=== PATIENT | female | born 1985 | race Caucasian/White ===

== ENCOUNTER 2018-09-16 20:01 | Emergency (ER) | payer MEDICAID ==
[~2018-09-16] VITALS: Ht 180.3 cm; Wt 67.1 kg
[~2018-09-16 20:01] MED LIST: ENO40SY
[2018-09-16 21:11] VITALS: BP 127/65
[2018-09-16] MEDS ORDERED: TETRACAINE HCL 0.5% OPTH(EYE) SOLN 4ML RIGHTEYE ONE (21:45)
[2018-09-16] MEDS ORDERED: FLUORESCEIN SOD 1 MG TEST STRIP RIGHTEYE ONE (21:45)
== END 2018-09-16 22:12 | disposition home or self-care (01) ==
LOC: ER 20:01
DX: S05.01XA Injury of conjunctiva and corneal abrasion without foreign body, right eye, initial encounter (principal); X58.XXXA Exposure to other specified factors, initial encounter; Y93.89 Activity, other specified; Y99.8 Other external cause status; Y92.89 Other specified places as the place of occurrence of the external cause

== ENCOUNTER 2019-01-23 19:15 | Emergency (ER) | payer MEDICAID ==
[~2019-01-23] VITALS: Ht 180.3 cm; Wt 54.4 kg
[2019-01-23 19:29] VITALS: BP 104/66
[2019-01-23] MEDS ORDERED: cefTRIAXone SOD 1,000 MG VL IM ONE (21:30)
[2019-01-23] MEDS ORDERED: DEXAMETHASONE SOD PHOS 10MG/1ML VIAL INJ IM ONE (21:30)
== END 2019-01-23 21:56 | disposition home or self-care (01) ==
LOC: ER 19:18
DX: J06.9 Acute upper respiratory infection, unspecified (principal)
CPT/HCPCS: 96372; 99283; J0696; J1100

== ENCOUNTER 2024-11-08 21:45 | Emergency (ER) | payer MEDICAID, OTHER ==
[~2024-11-08] VITALS: Ht 177.8 cm; Wt 65.7 kg
[2024-11-08 22:17] VITALS: BP 135/85; PULSE 91; RESP 15; O2SAT 100
[2024-11-08] MEDS ORDERED: CLIN1CAP70 PO (22:22)
--- NOTE | 2024-11-08 22:23 | ED.PDOC ---
History of Present Illness(SKN HPI Comments 39-year-old female complaining of wound to her left lower leg. States four days ago she was scratched by cat. States the areas becoming more red and swollen. Has not noticed some scant discharge. Nothing makes it better, touching the area makes it worse. No fevers no chills. 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 Family History Family History: Unknown Social History Smoker: Non-Smoker Alcohol: Denies ETOH Use Drugs: Denies Drug Use Lives In: Home Constitutional: denies: chills, diaphoresis, fatigue, fever, malaise, sweats, weakness, others EENTM: denies: blurred vision, double vision, ear bleeding, ear discharge, ear drainage, ear pain, ear ringing, eye pain, eye redness, hearing loss, mouth pain, mouth swelling, nasal discharge, nose bleeding, nose congestion, nose pain, photophobia, tearing, throat pain, throat swelling, voice changes, others Cardiovascular: denies: chest pain, dizzy spells, diaphoresis, Dyspnea on exertion, edema, irregular heart beat, left arm pain, lightheadedness, palpitations, PND, syncope, others Gastrointestinal: denies: abdomen distended, abdominal pain, blood streaked bowels, constipated, diarrhea, dysphagia, difficulty swallowing, hematemesis, melena, nausea, poor appetite, poor fluid intake, rectal bleeding, rectal pain, vomiting, others Genitourinary: denies: abnormal vagina bleeding, burning, dyspareunia, dysuria, flank pain, frequency, hematuria, incontinence, pain, , vagina discharge, urgency, others Neurological: denies: dizziness, fainting, headache, left sided numbness, left sided weakness, numbness, paresthesia, pre-existing deficit, right sided numbness, right sided weakness, seizure, speech problems, tingling, tremors, weakness, others Musculoskeletal: denies: back pain, gout, joint pain, joint swelling, muscle pain, muscle stiffness, neck pain, others Integumetry: reports: wounds (Left lower leg); denies: bruises, change in color, change in hair/nails, dryness, laceration, lesions, lumps, rash, others Allergic/Immunocompromised: denies: Difficulty Healing, Frequent Infections, Hives, Itching, others Hematologic/Lymphatic: denies: anemia, blood clots, easy bleeding, easy bruisi ng, swollen glands, others Endocrine: denies: excessive hunger, excessive sweating, excessive thirst, exce ssive urination, flushing, intolerance to cold, intolerance to heat, unexplained weight gain, unexplained weight loss, others Physical Exam General Appearance: No Apparent Distress, Normal HEENT: Normal ENT Inspection, Pharynx Normal, TMs Normal Neck: Full Range of Motion, Non-Tender, Normal, Normal Inspection Respiratory: Chest Non-Tender, Lungs Clear, No Accessory Muscle Use, No Respiratory Distress, Normal Breath Sounds Cardiovascular: No Edema, No JVD, No Murmur, No Gallop, Normal Peripheral Pulses, Regular Rate/Rhythm Breast Exam: Deferred Gastrointestinal: No Organomegaly, Non Tender, No Pulsatile Mass, Normal Bowel Sounds, Soft Genitalia: Deferred Pelvic: Deferred Rectal: Deferred Extremities: No calf tenderness, Normal capillary refill, Normal inspection, Normal range of motion, Non-tender, No pedal edema Musculoskeletal : Apperance: Normal Neurologic: Alert, ammonia solution preparer II-XII nml as Tested, No Motor Deficits, Normal Affect, Normal Mood, No Sensory Deficits Cerebellar Function: Normal Reflexes: Normal Skin: Dry, Normal Color, Warm, Wounds (Wound to the medial side of the left lower leg. Area is erythemic. Wound is approximate 1 cm. Areas tender to palpation.) Lymphatic: No Adenopathy Was a procedure done? Was a procedure done?: No Differential Diagnosis (INTG) Differential Diagnosis: Abrasion, Cellulitis, Insect Envenomation X-Ray, Labs, Meds, VS Comment Imaging: X-rays and CT scans were reviewed and interpreted by this provider, imaging shows no fractures and no pathological disease. Pending radiology review. Laboratory: Labs reviewed and interpreted by this provider. No significant abnormalities noted. Patient has prior medical visits reviewed. Med reconciliation performed Vital signs reviewed Time of 1ST Reevaluation: 22:23 Reevaluation 1ST: Improved Patient Education/Counseling: Diagnosis, Need For Follow Up (Follow up with PCP in the next 2-4 days. Return emergency department if symptoms worsen.) Family Education/Counseling: No Family Present Departure 1 Departure Time of Disposition: 22:21 Impression: Primary Impression: Cellulitis Qualified Codes: L03.116 - Cellulitis of left lower limb Disposition: HOME / SELF CARE / HOMELESS Condition: Fair e-Prescriptions Clindamycin Hcl (Clindamycin Hcl) 300 Mg Cap 300 MG PO QID for 10 Days, #40 CAP Prov: REX NORRIS 11/08/24 Discharged With: Self Critical Care Note Critical Care Time?: No Stability Stability form required: No Heart Score Heart Score: Heart Score Response (Comments) Value History N/A 0 EKG N/A 0 Age N/A 0 Risk Factors N/A 0 Troponin N/A 0 Total 0 REX NORRIS Nov 08, 2024 22:23
== END 2024-11-09 | disposition home or self-care (01) ==
LOC: ER 21:45
DX: L03.116 Cellulitis of left lower limb (principal)

== ENCOUNTER 2024-12-09 20:10 | Emergency (ER) | payer OTHER ==
[~2024-12-09] VITALS: Ht 177.8 cm; Wt 63.3 kg
[~2024-12-09 20:10] MED LIST changes: +CLIN1CAP70 PO
[2024-12-09 20:38] VITALS: BP 141/81; RESP 24; O2SAT 98
--- NOTE | 2024-12-09 20:51 | ED.PDOC ---
History of Present Illness HPI Comments This is a 39-year-old female who comes in with chief complaint of weakness since about 4:00 a.m. this afternoon. The patient was currently at a house feeding several cats and had two syncopal episodes. Her friend came to check on her and brought her to the emergency department's for evaluation. The patient denies any chest pain, nausea or vomiting. The patient was complaining of chills but no fever the patient denies any history of this in the past. She is having some leg swelling bilaterally. 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: No 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 Family History Family History: Family hx of DM, Family hx of Cancer Social History Smoker: Non-Smoker Alcohol: Denies ETOH Use Drugs: Methamphetamine Lives In: Home Constitutional: reports: chills, weakness; denies: diaphoresis, fatigue, fever, malaise, sweats, others EENTM: denies: blurred vision, double vision, ear bleeding, ear discharge, ear drainage, ear pain, ear ringing, eye pain, eye redness, hearing loss, mouth pain, mouth swelling, nasal discharge, nose bleeding, nose congestion, nose pain, photophobia, tearing, throat pain, throat swelling, voice changes, others Respiratory: denies: cough, hemoptysis, orthopnea, SOB at rest, shortness of breath, SOB with excertion, stridor, wheezing, others Cardiovascular: reports: syncope; denies: chest pain, dizzy spells, diaphoresis, Dyspnea on exertion, edema, irregular heart beat, left arm pain, lightheadedness, palpitations, PND, others Gastrointestinal: denies: abdomen distended, abdominal pain, blood streaked bowels, constipated, diarrhea, dysphagia, difficulty swallowing, hematemesis, melena, nausea, poor appetite, poor fluid intake, rectal bleeding, rectal pain, vomiting, others Genitourinary: denies: abnormal vagina bleeding, burning, dyspareunia, dysuria, flank pain, frequency, hematuria, incontinence, pain, , vagina discharge, urgency, others Neurological: reports: others (Leg swelling); denies: dizziness, fainting, headache, left sided numbness, left sided weakness, numbness, paresthesia, pre- existing deficit, right sided numbness, right sided weakness, seizure, speech problems, tingling, tremors, weakness Musculoskeletal: denies: back pain, gout, joint pain, joint swelling, muscle pain, muscle stiffness, neck pain, others Integumetry: denies: bruises, change in color, change in hair/nails, dryness, laceration, lesions, lumps, rash, wounds, others Allergic/Immunocompromised: denies: Difficulty Healing, Frequent Infections, Hives, Itching, others Hematologic/Lymphatic: denies: anemia, blood clots, easy bleeding, easy bruising, swollen glands, others Endocrine: denies: excessive hunger, excessive sweating, excessive thirst, excessive urination, flushing, intolerance to cold, intolerance to heat, unexplained weight gain, unexplained weight loss, others Psychiatric: denies: anxiety, bipolar disorder, depression, hopeless, panic disorder, schizophrenia, sleepless, suicidal, others Physical Exam General Appearance: Moderate Distress HEENT: Normal ENT Inspection, Pharynx Normal, TMs Normal Neck: Full Range of Motion, Non-Tender, Normal, Normal Inspection Respiratory: Chest Non-Tender, Lungs Clear, No Accessory Muscle Use, No Respiratory Distress, Normal Breath Sounds Cardiovascular: No Edema, No JVD, No Murmur, No Gallop, Tachycardia Breast Exam: Deferred Gastrointestinal: No Organomegaly, Non Tender, No Pulsatile Mass, Normal Bowel Sounds, Soft Genitalia: Deferred Pelvic: Deferred Rectal: Deferred Extremities: No calf tenderness, Normal capillary refill, Pedal edema Musculoskeletal : Apperance: Normal Neurologic: Alert, information technology associate II-XII nml as Tested, Motor Weakness, Normal Affect, Normal Mood, No Sensory Deficits Cerebellar Function: Normal Reflexes: Normal Skin: Dry, Normal Color, Warm Lymphatic: No Adenopathy Was a procedure done? Was a procedure done?: No EKG EKG : Pulse Rate (adult): 114 [place]: Normal Cardiac Rhythm: ST Block: None ST: Nonsp Differential Dx Considerations may include: Weakness, electrolyte imbalance, sepsis X-Ray, Labs, Meds, VS Vital Signs Date Time Temp Pulse Resp B/P (MAP) Pulse Ox O2 Delivery O2 Flow Rate FiO2 12/09/24 21:22 114 12/09/24 20:55 114 12/09/24 20:38 99.9 120 24 141/81 (101) 98 Lab Test 12/09/24 21:21 Range/Units White Blood Count Pending Red Blood Count Pending Hemoglobin Pending Hematocrit Pending Mean Corpuscular Volume Pending Mean Corpuscular Hemoglobin Pending Mean Corpuscular Hemoglobin Concent Pending Red Cell Distribution Width Pending Platelet Count Pending Mean Platelet Volume Pending Neutrophils (%) (Auto) Pending Lymphocytes (%) (Auto) Pending Monocytes (%) (Auto) Pending Basophils (%) (Auto) Pending Neutrophils # (Auto) Pending Lymphocytes # (Auto) Pending Monocytes # (Auto) Pending Sodium Level Pending Potassium Level Pending Chloride Level Pending Carbon Dioxide Level Pending Anion Gap Pending Blood Urea Nitrogen Pending Creatinine Pending Glomerular Filtration Rate Calc Pending BUN/Creatinine Ratio Pending Serum Glucose Pending Calcium Level Pending Ultrasound of the lower extremities are pending The cc and chemistry panel are pending The patient will be signed out to Dr. Phan Images Reviewed?: Images reviewed and evaluated by me Time of 1ST Reevaluation: 21:22 Reevaluation 1ST: Unchanged Patient Education/Counseling: Diagnosis, Treatment, Prognosis Family Education/Counseling: No Family Present Departure 1 Departure Time of Disposition: 21:21 Impression: Primary Impression: Generalized weakness Additional Impression: Pedal edema Disposition: 30 STILL A PATIENT Condition: Fair Critical Care Note Critical Care Time?: No Stability Stability form required: Yes Unstable for transfer: Telemetry monitoring (Telemetry monitoring required), ED Physician Assesment (Clinical assesment) Heart Score Heart Score: Heart Score Response (Comments) Value History N/A 0 EKG N/A 0 Age N/A (A) 0 Risk Factors N/A 0 Troponin N/A (Bunion) 0 Total 0 BHAVESH FRAGA MD Dec 09, 2024 20:51
[2024-12-09 21:22] VITALS: PULSE 114
[2024-12-09 21:57] LABS: Potassium 3.9 mmol/L (3.5-5.1); Sodium 138 mmol/L (136-145)
[2024-12-09 21:58] LABS: Anion Gap 11 (5-15); Calcium 9.3 mg/dL (8.7-10.4); Carbon Dioxide 20 mmol/L (20-31)
[2024-12-09 22:02] LABS: Urine Bacteria None Seen /hpf (None Seen)
[2024-12-09 22:03] LABS: BUN/Creatinine Ratio 12.6 (10.0-20.0); Blood Urea Nitrogen 11 mg/dL (9-23); Glucose 97 mg/dL (74-106)
--- NOTE | 2024-12-09 22:12 | DVH ---
CLINICAL HISTORY: leg swelling TECHNIQUE: Color and duplex doppler imaging of the bilateral lower extremity veins was performed. Ves chinyere compression if possible was also performed. WID: COMPARISON: None FINDINGS: Right Lower Extremity: Right common femoral vein: Normal compressibility and flow. Right femoral vein: Normal compressibility and flow. Right popliteal vein: Normal compressibility and flow. Proximal calf veins are normally compressible. Left Lower Extremity: Left common femoral vein: Normal compressibility and flow. Left femoral vein: Nonocclusive echogenic linear thrombus in the mid superficial femoral vein. Otherw ise Normal compressibility and flow. Left popliteal vein: Normal compressibility and flow. Proximal calf veins are normally compressible. IMPRESSION: 1. Chronic appearing nonocclusive thrombus in the mid left superficial femoral vein 2. NO SONOGRAPHIC EVIDENCE FOR DEEP VENOUS THROMBOSIS IN THE right LOWER EXTREMITY VEINS. Critical Result: Chronic appearing left femoral vein DVT Findings discussed with BHAVESH FRAGA at 12/09/2024 by the destination specialist ..
[2024-12-09 22:15] LABS: Basophils # (auto) 0 10 ^3/uL (0-0.2); Eosinophils # (auto) 0 10 ^3/uL (0-0.8); Monocytes # (auto) 0.2 10 ^3/uL (0-1.3); White Blood Cell 3.2 10^3/uL (4.4-10.8)
[2024-12-09 22:16] LABS: Basophils % (auto) 0.9 % (0.0-2.0); Eosinophils % (auto) 0.8 % (0.0-7.0); Hematocrit 19.1 % (36.0-46.0); Lymphocytes # (auto) 0.3 10 ^3/uL (0.4-5.4); Lymphocytes % (auto) 8.6 % (10.0-50.0); Mean Corpuscular Hemoglobin 15.4 pg (28.0-32.0); Mean Corpuscular Hgb Conc. 27.6 g/dL (32.0-36.0); Mean Corpuscular Volume 55.7 fL (80.0-100.0); Monocytes % (auto) 7.9 % (0.0-12.0); Neutrophils # (auto) 2.6 10 ^3/uL (1.6-8.6); Neutrophils % (auto) 81.8 % (37.0-80.0); Nucleated Red Blood Cells % 0.8 %; Platelet Count (auto) 298 10^3/uL (140-450); Red Blood Cells 3.43 10^6/uL (4.0-5.20)
[2024-12-09 22:19] LABS: Hemoglobin 5.3 g/dL (12.2-16.2)
[2024-12-09 22:21] LABS: Urine Blood 3+ /uL (Negative); Urine Clarity Clear (Clear); Urine Color Light-Yellow (Yellow); Urine Protein, UAD Negative (Negative); Urine Specific Gravity 1.017 (1.001-1.035); Urine Squamous Epithelial Cell FEW /hpf (<5); Urine Urobilinogen Normal (Negative); Urine WBC 1 /HPF (0-5); Urine pH 6.5 (5.0-9.0)
[2024-12-09 22:36] LABS: Chloride 107 mmol/L (98-107)
--- NOTE | 2024-12-09 22:59 | DVH ---
EXAM: XY CHEST TWO VIEWS ROUTINE CLINICAL HISTORY: cough TECHNIQUE: Frontal and lateral views of the chest WID: COMPARISON: None FINDINGS: Lines and tubes: None Chest: The heart size and pulmonary vasculature is within normal limits. No pleural effusion, pneumothorax, or consolidation. The osseous structures are grossly intact. IMPRESSION: No acute cardiopulmonary abnormality.
[2024-12-09 23:11] LABS: Alanine Aminotransferase 21 U/L (7-40); Albumin 3.9 g/dL (3.2-4.8); Alkaline Phosphatase 78 U/L (46-116); Anion Gap 9 (5-15); Aspartate Aminotransferase 21 U/L (13-40); BUN/Creatinine Ratio 12.8 (10.0-20.0); Blood Urea Nitrogen 11 mg/dL (9-23); Calcium 9.1 mg/dL (8.7-10.4); Carbon Dioxide 21 mmol/L (20-31); Potassium 3.8 mmol/L (3.5-5.1); Sodium 137 mmol/L (136-145)
[2024-12-09 23:12] LABS: Bilirubin, Total 0.8 mg/dL (0.2-1.0); Total Protein 6.8 g/dL (5.7-8.2)
[2024-12-09 23:14] LABS: Chloride 107 mmol/L (98-107); Glucose 110 mg/dL (74-106)
[2024-12-09 23:16] LABS: Anisocytosis Slight; Hypochromia Marked
[2024-12-09 23:17] LABS: Ovalocytes FEW
[2024-12-09 23:18] LABS: Platelet Estimate Adequate
[2024-12-09 23:19] LABS: Tear Drop Cells FEW
--- NOTE | 2024-12-10 00:34 | ECG ---
[facility] Test Date: 2024-12-09 Test Time: 20:55:06 Pat Name: TORIN ABEL Department: ER Room: Gender: F Head Host/Hostess: DERICK : 1985 Requested By: BHAVESH FRAGA Order Number: [id number] Reading MD: Azam Lutz Measurements Intervals [place] Rate: 114 P: 76 DC: 146 QRS: 89 QRSD: 95 T: 56 QT: 332 QTc: 458 Interpretive Statements Sinus tachycardia Baseline wander in lead(s) V2 Electronically Signed On 12-10-2024 12:11:47 PST by Azam Lutz Please click the below link to view image of tracing.
[2024-12-10] MEDS ORDERED: DOCUSATE SOD 100 MG CAP PO PRN (02:00)
[2024-12-10] MEDS ORDERED: ONDANSETRON HCL 4 MG/2 ML VIAL IV PRN (02:00)
[2024-12-10] MEDS ORDERED: ACETAMINOPHEN 325 MG TAB PO PRN (02:00)
[2024-12-10] MEDS ORDERED: SODIUM CHLORIDE 0.9% 1,000 ML IV SCH (02:00)
[2024-12-10] MEDS ORDERED: HYDROcodone-ACET 5/325MG TAB PO PRN (02:00)
== END 2024-12-10 04:05 | disposition left against medical advice (07) ==
LOC: ER 20:10 → MERGE 20:10 → ER 12-10 04:05
DX: R60.0 Localized edema (principal); R53.1 Weakness; R55 Syncope and collapse; Z86.718 Personal history of other venous thrombosis and embolism
CPT/HCPCS: 36415; 71046; 80048; 80053; 81001; 83880; 85025; 86850; 86900; 86901; 86920; 93005; 93970

== ENCOUNTER 2024-12-10 07:05 | Inpatient (IN) | payer OTHER ==
[~2024-12-10] VITALS: Ht 177.8 cm; Wt 67.0 kg
--- NOTE | 2024-12-10 08:41 | ED.PDOC ---
History of Present Illness HPI Comments This is a 39-year-old female who comes in with chief complaint of weakness since about 4:00 a.m. yesterday. The patient was currently at a house feeding several cats and had two syncopal episodes. Her friend came to check on her and brought her to the emergency department's for evaluation. The patient denies any chest pain, nausea or vomiting. The patient was complaining of chills but no fever the patient denies any history of this in the past. She is having some leg swelling bilaterally. 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 History Family History Family History: Family hx of DM, Family hx of Cancer Social History Smoker: Non-Smoker Alcohol: Denies ETOH Use Drugs: Methamphetamine Lives In: Home Constitutional: reports: chills, weakness; denies: diaphoresis, fatigue, fever, malaise, sweats, others EENTM: denies: blurred vision, double vision, ear bleeding, ear discharge, ear drainage, ear pain, ear ringing, eye pain, eye redness, hearing loss, mouth pain, mouth swelling, nasal discharge, nose bleeding, nose congestion, nose pain, photophobia, tearing, throat pain, throat swelling, voice changes, others Respiratory: denies: cough, hemoptysis, orthopnea, SOB at rest, shortness of breath, SOB with excertion, stridor, wheezing, others Cardiovascular: denies: chest pain, dizzy spells, diaphoresis, Dyspnea on exertion, edema, irregular heart beat, left arm pain, lightheadedness, palpitations, PND, syncope, others Gastrointestinal: denies: abdomen distended, abdominal pain, blood streaked bowels, constipated, diarrhea, dysphagia, difficulty swallowing, hematemesis, melena, nausea, poor appetite, poor fluid intake, rectal bleeding, rectal pain, vomiting, others Genitourinary: denies: abnormal vagina bleeding, burning, dyspareunia, dysuria, flank pain, frequency, hematuria, incontinence, pain, , vagina discharge, urgency, others Neurological: denies: dizziness, fainting, headache, left sided numbness, left sided weakness, numbness, paresthesia, pre-existing deficit, right sided numbness, right sided weakness, seizure, speech problems, tingling, tremors, weakness, others Musculoskeletal: denies: back pain, gout, joint pain, joint swelling, muscle pain, muscle stiffness, neck pain, others Integumetry: denies: bruises, change in color, change in hair/nails, dryness, laceration, lesions, lumps, rash, wounds, others Allergic/Immunocompromised: denies: Difficulty Healing, Frequent Infections, Hives, Itching, others Hematologic/Lymphatic: denies: anemia, blood clots, easy bleeding, easy bruising, swollen glands, others Endocrine: denies: excessive hunger, excessive sweating, excessive thirst, excessive urination, flushing, intolerance to cold, intolerance to heat, unexplained weight gain, unexplained weight loss, others Psychiatric: denies: anxiety, bipolar disorder, depression, hopeless, panic disorder, schizophrenia, sleepless, suicidal, others All Other Systems: Reviewed and Negative Physical Exam General Appearance: Mild Distress, Normal, Other (WEAKNESS) HEENT: Normal ENT Inspection, Pharynx Normal, TMs Normal Neck: Full Range of Motion, Non-Tender, Normal, Normal Inspection Respiratory: Chest Non-Tender, Lungs Clear, No Accessory Muscle Use, No Respiratory Distress, Normal Breath Sounds Cardiovascular: No Edema, No JVD, No Murmur, No Gallop, Normal Peripheral Pulses, Regular Rate/Rhythm Breast Exam: Deferred Gastrointestinal: No Organomegaly, Non Tender, No Pulsatile Mass, Normal Bowel Sounds, Soft Genitalia: Deferred Pelvic: Deferred Rectal: Deferred Extremities: No calf tenderness, Normal capillary refill, Normal inspection, Normal range of motion, Non-tender, No pedal edema Musculoskeletal : Apperance: Normal Neurologic: Alert, tour bus driver/guide II-XII nml as Tested, No Motor Deficits, Normal Affect, Normal Mood, No Sensory Deficits Cerebellar Function: Normal Reflexes: Normal Skin: Dry, Normal Color, Warm Lymphatic: No Adenopathy Was a procedure done? Was a procedure done?: No Differential Dx Considerations may include: SEVERE ANEMIA, VAGINAL BLEEDING X-Ray, Labs, Meds, VS Vital Signs Date Time Temp Pulse Resp B/P (MAP) Pulse Ox O2 Delivery O2 Flow Rate FiO2 12/10/24 12:45 100.0 94 18 110/71 100.0 12/10/24 12:30 99.7 90 18 108/64 99.7 12/10/24 10:26 89 19 96 Room Air* 0 21 12/10/24 10:26 99.0 89 17 109/64 (79) 96 99.0 12/10/24 08:09 98 12/10/24 07:51 98.3 104 19 117/66 (83) 100 Lab Test 12/10/24 08:56 12/10/24 07:49 Range/Units White Blood Count 3.0 L 4.4-10.8 10^3/uL Red Blood Count 3.26 L 4.0-5.20 10^6/uL Hemoglobin 5.1 *L 12.2-16.2 g/dL Hematocrit 18.4 L 36.0-46.0 % Mean Corpuscular Volume 56.3 L 80.0-100.0 fL Mean Corpuscular Hemoglobin 15.7 L 28.0-32.0 pg Mean Corpuscular Hemoglobin Concent 27.8 L 32.0-36.0 g/dL Red Cell Distribution Width 21.8 H 11.8-14.3 % Platelet Count 259 140-450 10^3/uL Mean Platelet Volume 8.2 6.9-10.8 fL Neutrophils (%) (Auto) 70.3 37.0-80.0 % Lymphocytes (%) (Auto) 17.7 10.0-50.0 % Monocytes (%) (Auto) 10.9 0.0-12.0 % Eosinophils (%) (Auto) 0.1 0.0-7.0 % Basophils (%) (Auto) 1.0 0.0-2.0 % Neutrophils # (Auto) 2.1 1.6-8.6 10 ^3/uL Lymphocytes # (Auto) 0.5 0.4-5.4 10 ^3/uL Monocytes # (Auto) 0.3 0-1.3 10 ^3/uL Eosinophils # (Auto) 0 0-0.8 10 ^3/uL Basophils # (Auto) 0 0-0.2 10 ^3/uL Nucleated Red Blood Cells 0.7 % Platelet Estimate Adequate Hypochromasia (manual) Marked Anisocytosis (manual) Slight Microcytosis Marked Tear Drop Cells Few Ovalocytes Few Schistocytes Few Reticulocyte Count (auto) 1.71 H 0.5-1.5 % Iron Level 22 L 50-170 ug/dL Total Iron Binding Capacity 372 250-425 ug/dL Percent Iron Saturation 5.9 L 15-50 % Ferritin 3.9 L 10-291 ng/mL Urine Color Light-yellow Yellow Urine Clarity Clear Clear Urine pH 7.0 5.0-9.0 Urine Specific [place] 1.010 1.001-1.035 Urine Protein Negative Negative Urine Ketones Negative Negative Urine Blood 2+ H Negative /uL Urine Nitrite Negative Negative Urine Bilirubin Negative Negative Urine Urobilinogen Normal Negative mg/dL Urine Leukocyte Esterase Negative Negative /uL Urine RBC <1 0 - 4 /hpf Urine Microscopic WBC 0-5 /HPF Urine Squamous Epithelial Cells Few <5 /hpf Urine Bacteria None seen None Seen /hpf Urine Glucose Normal Normal mg/dL 39-year-old female presents here status post syncopal episode yesterday. She was seen initially in the ER and left against medical advice. She presents again today. At this time she is pale appearing appears in significant distress. Concerned that she will have an acute syncopal episode at anytime. This time hemoglobin has been found to be 5.3 from yesterday and repeat today is 5.1. Patient has agreed to acute blood transfusion. I have spoken to patient's regarding the risk of transfusion and she agrees. This time I have written for 1 unit PRBC. Likely secondary to acute iron deficiency anemia. Hospitalist team has been contacted for admission. Time of 1ST Reevaluation: 08:52 Reevaluation 1ST: Unchanged Patient Education/Counseling: Diagnosis, Treatment, Prognosis Family Education/Counseling: Diagnosis, Treatment, Prognosis Departure 1 Departure Time of Disposition: 10:22 Impression: Primary Impression: Severe anemia Additional Impressions: Drop in hemoglobin Syncope Qualified Codes: R55 - Syncope and collapse Disposition: 09 ADMITTED INPATIENT Admit to: [facility] Condition: Fair Critical Care Note Critical Care Time?: Yes (35 min-critical care time only) Critical care comment: Time spent evaluating the patient, speaking to the patient regarding blood, transfusing the patient, patient required multiple re-evaluations, speaking to admitting team Stability Stability form required: No I personally scribed for VINICIUS LAROSE MD ([email or web address]) on 12/10/24 at 08:41. Electronically submitted by Dontrell Diaz ([email or web address]). VINICIUS LAROSE MD Dec 10, 2024 08:41
[2024-12-10 09:21] LABS: Basophils # (auto) 0 10 ^3/uL (0-0.2); Eosinophils # (auto) 0 10 ^3/uL (0-0.8); Eosinophils % (auto) 0.1 % (0.0-7.0); Lymphocytes # (auto) 0.5 10 ^3/uL (0.4-5.4); Monocytes # (auto) 0.3 10 ^3/uL (0-1.3)
[2024-12-10 09:26] LABS: Hematocrit 18.4 % (36.0-46.0); Lymphocytes % (auto) 17.7 % (10.0-50.0); Mean Corpuscular Hemoglobin 15.7 pg (28.0-32.0); Mean Corpuscular Hgb Conc. 27.8 g/dL (32.0-36.0); Mean Corpuscular Volume 56.3 fL (80.0-100.0); Monocytes % (auto) 10.9 % (0.0-12.0); Neutrophils # (auto) 2.1 10 ^3/uL (1.6-8.6); Neutrophils % (auto) 70.3 % (37.0-80.0); Nucleated Red Blood Cells % 0.7 %; Platelet Count (auto) 259 10^3/uL (140-450); Red Blood Cells 3.26 10^6/uL (4.0-5.20); Red Cell Distribution Width 21.8 % (11.8-14.3)
[2024-12-10 09:59] LABS: Hemoglobin 5.1 g/dL (12.2-16.2)
[2024-12-10 10:26] VITALS: PULSE 89; RESP 19; O2SAT 96
[2024-12-10 11:02] LABS: % Iron Saturation 5.9 % (15-50)
[2024-12-10 12:30] VITALS: BP 108/64; PULSE 90; RESP 18; TEMP 99.7
[2024-12-10 12:45] VITALS: BP 110/71; PULSE 94; RESP 18; TEMP 100
[2024-12-10 12:57] LABS: Anisocytosis Slight; Hypochromia Marked
[2024-12-10 12:58] LABS: Ovalocytes FEW; Platelet Estimate Adequate; Tear Drop Cells FEW
[2024-12-10 13:53] LABS: Urine Bacteria None Seen /hpf (None Seen)
--- NOTE | 2024-12-10 14:08 | DVHHP2 ---
History of Present Illness Reason for Visit: Severe Anemia History of Present Illness This is a 39-year-old female who comes in with chief complaint of weakness since about 4:00 a.m. yesterday. The patient was currently at a house feeding several cats and had two syncopal episodes, without hitting her head. Her friend came to check on her and brought her to the emergency department's for evaluation. The patient denies any chest pain, nausea or vomiting. The patient was complaining of chills but no fever the patient denies any history of this in the past. She is having some leg swelling bilaterally. Per patient she started her period on 12/05, she considers it a normal amount of bleeding. She states that she has has a history of DVT after in the past but is currently not on any blood thinners. 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 Patient will be admitted to telemetry. Past Medical History Asthma, DVT Past Surgical History denies Family History denies pertinent history Smoke: No ALCOHOL: none Drugs: Other (methamphetamine) Lives: Homeless Review of Systems Constitutional: No: Fever, Chills, Sweats, Weakness, Malaise, Other Eyes: No: Pain, Vision change, Conjunctivae inflammation, Eyelid inflammation, Other, Redness ENT: No: Ear pain, Ear discharge, Nose pain, Nose discharge, Nose congestion, Mouth pain, Mouth swelling, Throat pain, Throat swelling, Other Respiratory: No: Cough, Dry, Shortness of breath, SOB with excertion, Wheezing, Hemoptysis, Pleuritic Pain, Sputum, Wheezing, Other Cardiovascular: No: Chest Pain, Palpitations, Orthopnea, Paroxysmal Noc. Dyspnea, Edema, Lt Headedness, Other Gastrointestinal: No: Nausea, Vomiting, Abdominal Pain, Diarrhea, Constipation, Melena, Hematochezia, Other Genitourinary: No Dysuria, No Frequency, No Incontinence, No Hematuria, No Retention, No Other Musculoskeletal: other (bilateral leg edema ) Skin: No: Rash, Lesions, Jaundice, Bruising, Other Neurological: No: Weakness, Numbness, Incoordination, Change in speech, Confusion, Seizures, Other Allergies: Coded Allergies: NO KNOWN ALLERGIES (Unverified , 12/09/24) Exam Vital Signs Vital Signs Date Time Temp Pulse Resp B/P (MAP) Pulse Ox O2 Delivery O2 Flow Rate FiO2 2/7/25 12:45 100.0 94 18 110/71 100.0 12/10/24 10:26 96 Room Air* 0 21 General Appearance: Alert, Oriented X3, Cooperative, No acute distress HEENT: Atraumatic, PERRLA, EOMI, Mucous membr. moist/pink Respiratory: Clear to auscultation, Normal air movement Cardiovascular: Regular rate, Normal S1, Normal S2, No murmurs Abdominal: Normal bowel sounds, Soft, No tenderness, No hepatospenomegaly, No masses Extremities: No clubbing, No cyanosis, No edema, Normal pulses, No tenderness/swelling Skin: No rashes, No breakdown, No significant lesion Neuro: Normal gait, Normal speech, Strength at 5/5 X4 ext, Normal tone, Sensation intact, Cranial nerves 3-12 NL, Reflexes 2+ Psych/Mental Status: Mental status NL, Mood NL Labs/Xrays Reviewed Labs Test 12/10/24 08:56 Range/Units White Blood Count 3.0 L 4.4-10.8 10^3/uL Red Blood Count 3.26 L 4.0-5.20 10^6/uL Hemoglobin 5.1 *L 12.2-16.2 g/dL Hematocrit 18.4 L 36.0-46.0 % Mean Corpuscular Volume 56.3 L 80.0-100.0 fL Mean Corpuscular Hemoglobin 15.7 L 28.0-32.0 pg Mean Corpuscular Hemoglobin Concent 27.8 L 32.0-36.0 g/dL Red Cell Distribution Width 21.8 H 11.8-14.3 % Platelet Count 259 140-450 10^3/uL Mean Platelet Volume 8.2 6.9-10.8 fL Neutrophils (%) (Auto) 70.3 37.0-80.0 % Lymphocytes (%) (Auto) 17.7 10.0-50.0 % Monocytes (%) (Auto) 10.9 0.0-12.0 % Eosinophils (%) (Auto) 0.1 0.0-7.0 % Basophils (%) (Auto) 1.0 0.0-2.0 % Neutrophils # (Auto) 2.1 1.6-8.6 10 ^3/uL Lymphocytes # (Auto) 0.5 0.4-5.4 10 ^3/uL Monocytes # (Auto) 0.3 0-1.3 10 ^3/uL Eosinophils # (Auto) 0 0-0.8 10 ^3/uL Basophils # (Auto) 0 0-0.2 10 ^3/uL Nucleated Red Blood Cells 0.7 % Platelet Estimate Adequate Hypochromasia (manual) Marked Anisocytosis (manual) Slight Microcytosis Marked Tear Drop Cells Few Ovalocytes Few Schistocytes Few Reticulocyte Count (auto) 1.71 H 0.5-1.5 % Iron Level 22 L 50-170 ug/dL Total Iron Binding Capacity 372 250-425 ug/dL Percent Iron Saturation 5.9 L 15-50 % Ferritin 3.9 L 10-291 ng/mL Assessment/Plan Assessment/Plan Severe anemia Admit Tele HGB 5.1 transfuse and re-check HGB 2 hours after unit complete. UA pending Takes no meds at home . GI/VTE PPX Deferring VTE PPX until HGB stable Protonix Regular diet Meth use/homelessness last used yesterday social service consult Pain/Anxiety medication PRN Plan discussed with: Patient Date of Service: Dec 10, 2024 Billing Provider: HANNAH TUCKER Common Visit Codes: [id number] INP/OBS CARE(HIGH) HANNAH TUCKER Dec 10, 2024 14:08
[2024-12-10] MEDS ORDERED: ACETAMINOPHEN 325 MG TAB PO PRN (14:15)
[2024-12-10] MEDS ORDERED: MORPHINE SULFATE INJ 2 MG/ml SYRG IV PRN ×2 (14:15)
[2024-12-10] MEDS ORDERED: ONDANSETRON HCL 4 MG/2 ML VIAL IV PRN (14:15)
[2024-12-10] MEDS ORDERED: NITROGLYCERIN 0.4 MG SL TAB SL PRN (14:15)
[2024-12-10] MEDS ORDERED: DOCUSATE SOD 100 MG CAP PO PRN (14:15)
[2024-12-10] MEDS ORDERED: HYDROcodone-ACET 5/325MG TAB PO PRN (14:15)
[2024-12-10 14:27] LABS: Urine Blood 2+ /uL (Negative); Urine Clarity Clear (Clear); Urine Color Light-Yellow (Yellow); Urine Protein, UAD Negative (Negative); Urine Squamous Epithelial Cell FEW /hpf (<5); Urine Urobilinogen Normal (Negative)
[2024-12-10] MEDS: SODIUM CHLORIDE 0.9% 1,000 ML IV SCH (15:00)
[2024-12-10 16:35] VITALS: BP 126/77; PULSE 95; RESP 20; TEMP 100
[2024-12-10 19:03] LABS: Basophils # (auto) 0.1 10 ^3/uL (0-0.2); Hematocrit 31.1 % (36.0-46.0); Hemoglobin 10.4 g/dL (12.2-16.2); Lymphocytes # (auto) 2.1 10 ^3/uL (0.4-5.4); Mean Corpuscular Volume 78.1 fL (80.0-100.0); Neutrophils # (auto) 4.6 10 ^3/uL (1.6-8.6); White Blood Cell 8.1 10^3/uL (4.4-10.8)
[2024-12-10 19:06] LABS: Basophils % (auto) 1.3 % (0.0-2.0); Eosinophils # (auto) 0.5 10 ^3/uL (0-0.8); Eosinophils % (auto) 6.6 % (0.0-7.0); Lymphocytes % (auto) 25.4 % (10.0-50.0); Mean Corpuscular Hemoglobin 26.3 pg (28.0-32.0); Mean Corpuscular Hgb Conc. 33.6 g/dL (32.0-36.0); Monocytes # (auto) 0.8 10 ^3/uL (0-1.3); Monocytes % (auto) 9.3 % (0.0-12.0); Neutrophils % (auto) 57.4 % (37.0-80.0); Platelet Count (auto) 290 10^3/uL (140-450); Red Blood Cells 3.98 10^6/uL (4.0-5.20); Red Cell Distribution Width 16.3 % (11.8-14.3)
[2024-12-10 21:00] VITALS: BP_SYST 106; BP_SYST 120; BP_DIAS 64; BP_DIAS 70; PULSE 78; PULSE 86; RESP 18; TEMP 100.6; TEMP 99.4
[2024-12-11] VITALS (11 sets, daily range): BP systolic 107–121; BP diastolic 66–86; PULSE 75–92; RESP 14–20; TEMP 97.4–99; O2SAT 97–100
[2024-12-11 08:41] LABS: Alanine Aminotransferase 15 U/L (7-40); Albumin 3.8 g/dL (3.2-4.8); Alkaline Phosphatase 76 U/L (46-116); Anion Gap 7 (5-15); Aspartate Aminotransferase 19 U/L (13-40); BUN/Creatinine Ratio 8.6 (10.0-20.0); Carbon Dioxide 23 mmol/L (20-31); Glucose 92 mg/dL (74-106); Potassium 3.8 mmol/L (3.5-5.1); Sodium 138 mmol/L (136-145)
[2024-12-11 08:42] LABS: Total Protein 6.6 g/dL (5.7-8.2)
[2024-12-11 08:59] LABS: Bilirubin, Total 1.3 mg/dL (0.2-1.0); Blood Urea Nitrogen 7 mg/dL (9-23); Chloride 108 mmol/L (98-107)
[2024-12-11 09:36] LABS: Basophils # (auto) 0 10 ^3/uL (0-0.2); Eosinophils # (auto) 0.1 10 ^3/uL (0-0.8); Lymphocytes # (auto) 1.1 10 ^3/uL (0.4-5.4); Monocytes # (auto) 0.6 10 ^3/uL (0-1.3)
[2024-12-11 09:38] LABS: Basophils % (auto) 0.7 % (0.0-2.0); Eosinophils % (auto) 1.4 % (0.0-7.0); Hematocrit 22.7 % (36.0-46.0); Lymphocytes % (auto) 27.4 % (10.0-50.0); Mean Corpuscular Hemoglobin 16.7 pg (28.0-32.0); Mean Corpuscular Hgb Conc. 27.8 g/dL (32.0-36.0); Mean Corpuscular Volume 60.1 fL (80.0-100.0); Monocytes % (auto) 14.1 % (0.0-12.0); Neutrophils # (auto) 2.3 10 ^3/uL (1.6-8.6); Neutrophils % (auto) 56.4 % (37.0-80.0); Nucleated Red Blood Cells % 0.7 %; Platelet Count (auto) 204 10^3/uL (140-450); Red Blood Cells 3.78 10^6/uL (4.0-5.20)
[2024-12-11 09:42] LABS: Red Cell Distribution Width 23.7 % (11.8-14.3)
[2024-12-11 09:44] LABS: Hemoglobin 6.3 g/dL (12.2-16.2)
[2024-12-11 11:12] LABS: INR 1.13 (0.9-1.15); Partial Thromboplastin Time 28.9 SEC (24.5-34.5); Prothrombin Time 11.8 sec (9.3-11.8)
[2024-12-11 11:22] LABS: % Iron Saturation 7.3 % (15-50)
--- NOTE | 2024-12-11 14:32 | DVHPN2 ---
Assessment/Plan Assessment/Plan 39 yo F with meth use admitted for syncope and dizziness, found to have Hb of 5.1. LMP 2/2, 4-5 pads for 7 days, regular. No hx of cancer, blood dz. s/p 1 unit PRBC from ED. using meth, denied alcohol, smoking. no other source of bleeding Physical exam Pale alert oriented x4 clear breath sounds s1 s2 rrr abodmen soft nontender no le edema labs ekg reviewed assessment and plan symptomatic anemia methamphetami use transfuse keep Hb >7 iron study reinforce abstinence diet reg dvt ppx hold Plan discussed with: Patient Date of Service: Dec 11, 2024 Billing Provider: HAYDEE SMART MD Common Visit Codes: [id number] INP/OBS CARE(HIGH) HAYDEE SMART MD Dec 11, 2024 14:32
[2024-12-12 00:52] LABS: Hematocrit 25.4 % (36.0-46.0); Hemoglobin 7.4 g/dL (12.2-16.2)
[2024-12-12 01:00] VITALS: BP 119/76; PULSE 84; RESP 20; TEMP 98.8; O2SAT 96
[2024-12-12 05:37] LABS: Basophils # (auto) 0 10 ^3/uL (0-0.2); Lymphocytes # (auto) 1.3 10 ^3/uL (0.4-5.4); Monocytes # (auto) 0.6 10 ^3/uL (0-1.3); Neutrophils # (auto) 2.5 10 ^3/uL (1.6-8.6)
[2024-12-12 05:40] LABS: Basophils % (auto) 0.5 % (0.0-2.0); Eosinophils # (auto) 0.2 10 ^3/uL (0-0.8); Eosinophils % (auto) 3.5 % (0.0-7.0); Hematocrit 24.8 % (36.0-46.0); Hemoglobin 7.5 g/dL (12.2-16.2); Lymphocytes % (auto) 28.2 % (10.0-50.0); Mean Corpuscular Hemoglobin 18.4 pg (28.0-32.0); Mean Corpuscular Hgb Conc. 30.1 g/dL (32.0-36.0); Mean Corpuscular Volume 61.3 fL (80.0-100.0); Monocytes % (auto) 13.6 % (0.0-12.0); Neutrophils % (auto) 54.2 % (37.0-80.0); Nucleated Red Blood Cells % 0.1 %; Platelet Count (auto) 202 10^3/uL (140-450); Red Blood Cells 4.04 10^6/uL (4.0-5.20); Red Cell Distribution Width 27.8 % (11.8-14.3); White Blood Cell 4.5 10^3/uL (4.4-10.8)
[2024-12-12 06:41] LABS: Anisocytosis Moderate; Hypochromia Marked; Platelet Estimate Adequate
--- NOTE | 2024-12-12 07:16 | ECG ---
[facility] Test Date: 2024-12-10 Test Time: 08:01:31 Pat Name: TORIN ABEL Department: ER Room: [facility]2T B Gender: F Colorectal Surgeon: ROULA : 1985 Requested By: VINICIUS LAROSE Order Number: [id number] Reading MD: Azam Lutz Measurements Intervals [place] Rate: 98 P: 73 WI: 152 QRS: 86 QRSD: 96 T: 68 QT: 350 QTc: 447 Interpretive Statements Sinus rhythm Minimal ST depression, lateral [id number] Electronically Signed On 12-12-2024 14:43:21 PST by Azam Lutz Please click the below link to view image of tracing.
[2024-12-12 08:00] VITALS: PULSE 81
[2024-12-12] MEDS ORDERED: FERR1TAB28 PO (08:57)
[2024-12-12 09:00] VITALS: BP 117/81; PULSE 80; RESP 16; TEMP 97.8; O2SAT 97
--- NOTE | 2024-12-12 11:20 | DVHDS2 ---
Discharge Summary Date of Admission Dec 10, 2024 at 14:08 Date of Discharge: Dec 12, 2024 Labs/Diagnostic Data: Laboratory Results Test 12/12/24 05:14 12/11/24 08:10 12/10/24 08:56 12/10/24 07:49 White Blood Count 4.5 10^3/uL (4.4-10.8) Red Blood Count 4.04 10^6/uL (4.0-5.20) Hemoglobin 7.5 g/dL (12.2-16.2) Hematocrit 24.8 % (36.0-46.0) Mean Corpuscular Volume 61.3 fL (80.0-100.0) Mean Corpuscular Hemoglobin 18.4 pg (28.0-32.0) Mean Corpuscular Hemoglobin Concent 30.1 g/dL (32.0-36.0) Red Cell Distribution Width 27.8 % (11.8-14.3) Platelet Count 202 10^3/uL (140-450) Mean Platelet Volume 8.2 fL (6.9-10.8) Neutrophils (%) (Auto) 54.2 % (37.0-80.0) Lymphocytes (%) (Auto) 28.2 % (10.0-50.0) Monocytes (%) (Auto) 13.6 % (0.0-12.0) Eosinophils (%) (Auto) 3.5 % (0.0-7.0) Basophils (%) (Auto) 0.5 % (0.0-2.0) Neutrophils # (Auto) 2.5 10 ^3/uL (1.6-8.6) Lymphocytes # (Auto) 1.3 10 ^3/uL (0.4-5.4) Monocytes # (Auto) 0.6 10 ^3/uL (0-1.3) Eosinophils # (Auto) 0.2 10 ^3/uL (0-0.8) Basophils # (Auto) 0 10 ^3/uL (0-0.2) Nucleated Red Blood Cells 0.1 % Platelet Estimate Adequate Hypochromasia (manual) Marked Anisocytosis (manual) Moderate Microcytosis Marked Prothrombin Time 11.8 sec (9.3-11.8) Prothrombin Time INR 1.13 (0.9-1.15) Activated Partial Thromboplast Time 28.9 SEC (24.5-34.5) Sodium Level 138 mmol/L (136-145) Potassium Level 3.8 mmol/L (3.5-5.1) Chloride Level 108 mmol/L (98-107) Carbon Dioxide Level 23 mmol/L (20-31) Anion Gap 7 (5-15) Blood Urea Nitrogen 7 mg/dL (9-23) Creatinine 0.81 mg/dL (0.550-1.02) Glomerular Filtration Rate Calc 94 mL/min (>90) BUN/Creatinine Ratio 8.6 (10.0-20.0) Serum Glucose 92 mg/dL (74-106) Calcium Level 9.0 mg/dL (8.7-10.4) Iron Level 24 ug/dL (50-170) Total Iron Binding Capacity 327 ug/dL (250-425) Percent Iron Saturation 7.3 % (15-50) Total Bilirubin 1.3 mg/dL (0.2-1.0) Aspartate Amino Transferase (AST) 19 U/L (13-40) Alanine Aminotransferase (ALT) 15 U/L (7-40) Alkaline Phosphatase 76 U/L (46-116) Total Protein 6.6 g/dL (5.7-8.2) Albumin 3.8 g/dL (3.2-4.8) Tear Drop Cells Few Ovalocytes Few Schistocytes Few Reticulocyte Count (auto) 1.71 % (0.5-1.5) Ferritin 3.9 ng/mL (10-291) Urine Color Light-yellow (Yellow) Urine Clarity Clear (Clear) Urine pH 7.0 (5.0-9.0) Urine Specific [place] 1.010 (1.001-1.035) Urine Protein Negative (Negative) Urine Ketones Negative (Negative) Urine Blood 2+ /uL (Negative) Urine Nitrite Negative (Negative) Urine Bilirubin Negative (Negative) Urine Urobilinogen Normal mg/dL (Negative) Urine Leukocyte Esterase Negative /uL (Negative) Urine RBC <1 /hpf (0 - 4) Urine Microscopic WBC /HPF (0-5) Urine Squamous Epithelial Cells Few /hpf (<5) Urine Bacteria None seen /hpf (None Seen) Urine Glucose Normal mg/dL (Normal) Other Laboratory Tests 12/12/24 05:14 12/11/24 08:10 Brief Hx & Hospital Course: 39 yo F with meth use admitted for syncope and dizziness, found to have Hb of 5.1. LMP 2/2, 4-5 pads for 7 days, regular. No hx of cancer, blood dz. s/p 1 unit PRBC from ED. using meth, denied alcohol, smoking. no other source of bleeding. received 2 units PRBC, hb improved and symptoms resolved. discharge with iron pills and dc clinic follow up Condition at Discharge: Good Final Diagnosis/Problems List symptomatic anemia, iron deficiency requiring blood transfusion methamphetami use Discharge Disposition: Home Discharge Instruct/Medications Diet: Regular Activity: No Restrictions, As Tolerated Follow Up/Referral: PCP dc clinic 1 week Medications: iron pills 39 Discharge Statement: "Patient was advised to return to the ER or call 911 if any headaches, dizziness, shortness of breath, chest pain, abdominal pain, bleeding, fevers, or worsening of medical condition. Patient was counseled about treatment plan, medications, possible side effects, patientverbalized understanding. All questions were answered to the best of my ability. This discharge took greater then 30 minutes in planning, reviewing documentation, counseling the patient, and discussing with other team members." ASSESSMENT ASSESSMENT Assessment anemia requiring blood transfusion Date of Service: Dec 12, 2024 Billing Provider: HAYDEE SMART MD Common Visit Codes: 28365-KTT/OBS DISCH DAY >30min HAYDEE SMART MD Dec 12, 2024 11:20
[2024-12-12 13:00] VITALS: BP 125/77; PULSE 92; RESP 16; TEMP 97.7; O2SAT 98
[2024-12-12 13:29] VITALS: BP 117/62; PULSE 82; RESP 16; TEMP 36.5; O2SAT 100
== END 2024-12-12 14:32 | disposition home or self-care (01) | DRG 663 ==
LOC: ER 07:05 → TELE 14:08 → MERGE 14:08 → TELE-WESTW 12-11 15:45
PROVIDERS: ADMIT Registered Nurse General Practice; ATTEND Registered Nurse General Practice
PROC: 30233N1 Transfusion of Nonautologous Red Blood Cells into Peripheral Vein, Percutaneous Approach (ICD-10-PCS; principal; 2024-12-10)
DX: D50.9 Iron deficiency anemia, unspecified (principal); F15.90 Other stimulant use, unspecified, uncomplicated; Z59.00 Homelessness unspecified; Z83.3 Family history of diabetes mellitus; Z86.718 Personal history of other venous thrombosis and embolism
CPT/HCPCS: 36415; 80053; 81001; 82728; 83540; 83550; 85014; 85018; 85025; 85045; 85610; 85730; 86850; 86900; 86901; 86920; 93005; 99291; G0378